=== PATIENT | female | born 1985 | race African-American/Black ===

== ENCOUNTER 2017-06-02 20:31 | Emergency (ER) | payer SELFPAY ==
[~2017-06-02 20:31] MED LIST: ISOVUE-370 76%-LOCM 1 ML ONE
[2017-06-02 21:00] LABS: Bilirubin Small (Negative); Blood, Urine Negative (Negative); Glucose, Urine (Dipstick) Negative (Negative); Ketone, Urine Trace mg/dL (Negative); Nitrite Negative (Negative); Protein, Urine (Dipstick) Negative (Neg-Trace); Urobilinogen 0.2 mg/dL (0.2-1.0)
[2017-06-02 21:13] LABS: #Eosinphils 0.1 thou/uL (0.0-0.7); #Lymphocytes 2.9 thou/uL (1.20-3.40); #Monocytes 0.3 thou/uL (0.11-0.59); #Neutrophils 3.2 thou/uL (1.40-6.50); %Basophils 0.5 % (0.0-1.0); %Eosinophils 1.8 % (0.0-10.0); %Lymphocytes 44.1 % (21.0-51.0); %Monocytes 5.2 % (0.0-10.0); Hematocrit 37.7 % (36.0-47.0); Mean Platelet Volume 7.5 fL (7.4-10.4); Red Blood Cell (RBC) Count 4.27 mill/uL (4.20-5.40); White Blood Cell (WBC) Count 6.6 thou/uL (4.8-10.8)
[2017-06-02 21:32] LABS: ALT (SGPT) 9 U/L (8-55); AST (SGOT) 12 U/L (5-34); Alkaline Phosphatase 66 U/L (40-150); Anion Gap 14 mmol/L (10-20); BUN (Urea Nitrogen) 11 mg/dL (7.0-18.7); Bilirubin, Total 0.2 mg/dL (0.2-1.2); Calc. Creatinine Clearance 0 mL/min (70-130); Calcium 9.1 mg/dL (7.8-10.44); Carbon Dioxide 22 mmol/L (22-29); Chloride 109 mmol/L (98-107); Estimated GFR-MDRD Greater than 90; Globulin 3.9 g/dL (2.4-3.5); Protein, Total 7.8 g/dL (6.0-8.3)
[2017-06-02] MEDS ORDERED: Morphine Sulfate 2 MG/ML SYRINGE ONE (21:39)
[2017-06-02] MEDS ORDERED: Ketorolac Tromethamine 30 MG/ML VIAL ONE (21:50)
--- NOTE | 2017-06-02 22:36 | CT ---
CT ABDOMEN AND PELVIS WITH IV CONTRAST: 06/02/17 INDICATION: Abdominal pain in the right lower quadrant. FINDINGS: The lung bases are clear. No focal hepatic lesion is evident. The spleen, pancreas and adrenal glands are within normal limits . There is early nephrographic phase of both kidneys. No focal renal lesion is evident. No free fluid is evident. Multiple nonopacified loops of small bowel are seen within the lower abdomen limiting visualization of the appendix. No definite free fluid is evident. There is heterogeneity of the uterus suspicious for underlying fibroids. The rectum and perirectal soft tissues appear within normal limits. There i s a mild amount of retained stool within the colon. No definite acute osseous abnormality is evident . IMPRESSION: 1. Nonvisualization of the appendix. No secondary signs for appendicitis is grossly evident. 2. Mild amount of retained stool within the colon. 3. Fibroid uterus. POS: KELY
== END 2017-06-02 23:38 | disposition home or self-care (01) ==
LOC: ERS 20:31
DX: R10.31 Right lower quadrant pain (principal)
CPT/HCPCS: 36415; 74177; 80053; 81003; 81025; 85025; 96361; 96374; J1885; J2270

== ENCOUNTER 2023-04-26 22:59 | Emergency (ER) | payer OTHER, SELFPAY ==
[2023-04-26] MEDS ORDERED: Ketorolac Tromethamine 30 MG/ML VIAL ONE (23:33)
== END 2023-04-26 23:50 | disposition home or self-care (01) ==
LOC: ERS 22:59
DX: S39.012A Strain of muscle, fascia and tendon of lower back, initial encounter (principal); E11.9 Type 2 diabetes mellitus without complications; I10 Essential (primary) hypertension; V89.2XXA Person injured in unspecified motor-vehicle accident, traffic, initial encounter
CPT/HCPCS: 96372; 99283; J1885

== ENCOUNTER 2023-07-29 16:14 | Emergency (ER) | payer SELFPAY ==
[2023-07-29 18:06] LABS: SARS-CoV-2 NAA Rapid Test Not Detected (NotDetected)
== END 2023-07-29 19:36 | disposition home or self-care (01) ==
LOC: ERS 16:14
DX: B34.9 Viral infection, unspecified (principal); E11.9 Type 2 diabetes mellitus without complications; I10 Essential (primary) hypertension; Z79.899 Other long term (current) drug therapy; Z79.84 Long term (current) use of oral hypoglycemic drugs; Z20.822 Contact with and (suspected) exposure to COVID-19
CPT/HCPCS: 36416; 99283

== ENCOUNTER 2024-01-17 19:42 | Emergency (ER) | payer BC ==
[2024-01-17] MEDS ORDERED: Ibuprofen 800 MG TAB ONE (21:24)
[2024-01-17] MEDS ORDERED: diphenhydrAMINE 50 MG CAP ONE (21:24)
[2024-01-17] MEDS ORDERED: Ondansetron ODT 4 MG TAB ONE (21:24)
== END 2024-01-17 22:49 | disposition home or self-care (01) ==
LOC: ERS 19:42
DX: G43.909 Migraine, unspecified, not intractable, without status migrainosus (principal); E11.9 Type 2 diabetes mellitus without complications; I10 Essential (primary) hypertension; Z79.899 Other long term (current) drug therapy; Z79.84 Long term (current) use of oral hypoglycemic drugs
CPT/HCPCS: 99283; Q0162

== ENCOUNTER 2024-08-27 07:54 | Emergency (ER) | payer BC ==
[2024-08-27] MEDS ORDERED: Acetaminophen 500 MG TAB ONE (09:23)
[2024-08-27] MEDS ORDERED: Ibuprofen 800 MG TAB ONE (09:24)
== END 2024-08-27 10:07 | disposition home or self-care (01) ==
LOC: ERS 07:54
DX: J11.1 Influenza due to unidentified influenza virus with other respiratory manifestations (principal); E11.9 Type 2 diabetes mellitus without complications; I10 Essential (primary) hypertension; Z79.84 Long term (current) use of oral hypoglycemic drugs
CPT/HCPCS: 71045; 87081; 87428; 87430

== ENCOUNTER 2024-09-26 07:24 | Emergency (ER) | payer BC ==
[2024-09-26] MEDS ORDERED: Ondansetron PF 4 MG/2 ML Vial ONE (08:13)
[2024-09-26] MEDS ORDERED: Ketorolac Tromethamine 30 MG (1 mL) VIAL ONE (08:13)
[2024-09-26 08:41] LABS: #Basophils Less than 0.03 10x3/uL (0.0-0.2); %Basophils 0.4 % (0.0-1.0); %Eosinophils 0.7 % (0.0-10.0); %Lymphocytes 47.9 % (21.0-51.0); %Neutrophils 44.8 % (42.0-75.0); Hematocrit 35.7 % (36.0-47.0); Hemoglobin 11.7 g/dL (12.0-16.0); Mean Corpuscular HGB CONC 32.8 g/dL (32.0-36.0); Mean Corpuscular Hemoglobin 25.8 pg (27.0-31.0); Mean Corpuscular Volume 78.8 fL (78.0-98.0); Mean Platelet Volume 9.9 fL (7.4-10.4); Platelet Count 239 10x3/uL (130-400); RBC Distribution Width 13.7 % (11.5-14.5); Red Blood Cell (RBC) Count 4.53 mill/uL (4.20-5.40)
[2024-09-26 08:58] LABS: ALT (SGPT) 10 U/L (8-55); AST (SGOT) 12 U/L (5-34); Albumin 3.3 g/dL (3.5-5.0); Alkaline Phosphatase 92 U/L (40-110); Anion Gap 12 mmol/L (10-20); BUN (Urea Nitrogen) 8 mg/dL (7.0-18.7); Bilirubin, Total 0.3 mg/dL (0.2-1.2); Calc. Creatinine Clearance 0 mL/min (70-130); Calcium 8.4 mg/dL (7.8-10.44); Carbon Dioxide 24 mmol/L (22-29); Chloride 104 mmol/L (98-107); Estimated GFR 118; Globulin 4.3 g/dL (2.4-3.5); Glucose 293 mg/dL (70-105); Lipase 13 U/L (8-78); Potassium 3.9 mmol/L (3.5-5.1); Protein, Total 7.6 g/dL (6.0-8.3); Sodium 136 mmol/L (136-145)
[2024-09-26 09:07] LABS: BHCG - Serum Negative (NEGATIVE); Pregs Control Background? CLEAR/WHITE (CLR/WHITE); Pregs Control Bar Appear? YES (CONTROL BAR)
[2024-09-26 09:33] LABS: Bacteria/HPF None Seen HPF (None Seen); Bilirubin Negative (Negative); Blood, Urine Negative (Negative); CAUTI Indications for Culture Dysuria,urgency,freq; Clarity Clear (Clear); Glucose, Urine (Dipstick) Greater than 1000 mg/dL (Negative); Ketone, Urine 40 mg/dL (Negative); Leukocyte Negative Leu/uL (Negative); Nitrite Negative (Negative); Protein, Urine (Dipstick) 10 mg/dL (Neg-Trace); RBC/HPF 0-3 HPF (0-3); Specific Gravity, Urine 1.048 (1.002-1.036); Squamous Epithelial 0-3 HPF (0-3); Urobilinogen Normal mg/dL (Less than 2); WBC/HPF 0-3 HPF (0-3)
[2024-09-26 09:36] LABS: Urine Culture Reflex No No
[2024-09-26] MEDS ORDERED: Iopamidol-370 76% 500 ML MDV (1 ML CHARGE) ONE (15:15)
== END 2024-09-26 10:00 | disposition home or self-care (01) ==
LOC: ERS 07:24
DX: R10.31 Right lower quadrant pain (principal); R10.32 Left lower quadrant pain; R11.2 Nausea with vomiting, unspecified; I10 Essential (primary) hypertension; E11.9 Type 2 diabetes mellitus without complications
CPT/HCPCS: 36415; 74177; 80053; 81001; 83690; 84703; 85025; 87428; 96361; 96374; 96375; J1885; J2405; Q9967